=== PATIENT | male | born 1935 | race Caucasian/White ===

== ENCOUNTER 2016-08-09 22:44 | Emergency (ER) | payer MEDICARE, BC ==
--- NOTE | 2016-08-10 00:38 | ER Document Report ---
ED General - General Chief Complaint: Constipation Stated Complaint: BOWEL PROBLEM Time Seen by Provider: 08/10/16 00:15 Notes: Patient is a 80 year old male with a history of chronic constipation who presents with concerns of the same. Patient reports for the past 8-10 months he has had significant problems with constipation and has been following with his primary care doctor for this issue. He has been using glycerin suppositories with minimal relief of his symptoms. At arrival he denies any acute symptoms but states that he is going on a cruise in less than 24 hours and wanted to get "cleaned out" before going on his cruise as he is worried about complications during that vacation. He specifically denies any abdominal pain, nausea, vomiting, difficulty tolerating p.o. intake. Continues to pass flatus and have small bowel movements which he describes as like rocks. Nothing is new or different about his symptoms tonight. He has not noted that anything to improve or worsen his symptoms. TRAVEL OUTSIDE OF THE [place] IN LAST 30 DAYS: No - Related Data Allergies/Adverse Reactions: Sulfa (Sulfonamide Antibiotics) Allergy (Verified 07/24/13 14:42) Past Medical History - General Information source: Patient - Social History Smoking Status: Never Smoker Frequency of alcohol use: None Drug Abuse: None Lives with: Spouse/Significant other Family History: Reviewed & Not Pertinent Patient has suicidal ideation: No Patient has homicidal ideation: No - Past Medical History Cardiac Medical History: Reports: Hx Hypercholesterolemia Denies: Hx Heart Attack, Hx Hypertension Pulmonary Medical History: Denies: Hx Asthma Neurological Medical History: Denies: Hx Cerebrovascular Accident, Hx Seizures Renal/ Medical History: Reports: Hx Benign Prostatic Hyperplasia, Hx Kidney Stones. Denies: Hx Peritoneal Dialysis GI Medical History: Denies: Hx Hepatitis, Hx Hiatal Hernia, Hx Ulcer Infectious Medical History: Denies: Hx Hepatitis Past Surgical History: Reports: Hx Abdominal Surgery - hernia repair, Hx Appendectomy, Hx Herniorrhaphy, Hx Urinary Tract Surgery - TURP, removal right ureteral stone. Denies: Hx Open Heart Surgery, Hx Pacemaker Review of Systems - Review of Systems Notes: Constitutional: Negative for fever. HENT: Negative for sore throat. Eyes: Negative for visual changes. Cardiovascular: Negative for chest pain. Respiratory: Negative for shortness of breath. Gastrointestinal: Negative for abdominal pain, vomiting or diarrhea. Genitourinary: Negative for dysuria. Musculoskeletal: Negative for back pain. Skin: Negative for rash. Neurological: Negative for headaches, weakness or numbness. 10 point ROS negative except as marked above and in HPI. Physical Exam - Vital signs Vitals: Temp Pulse Resp BP Pulse Ox 97.8 F 69 18 139/65 H 96 08/09/16 22:55 08/09/16 22:55 08/09/16 22:55 08/09/16 22:55 08/09/16 22:55 Interpretation: Normal Notes: PHYSICAL EXAMINATION: GENERAL: Well-appearing, well-nourished and in no acute distress. HEAD: Atraumatic, normocephalic. EYES: Pupils equal round and reactive to light, extraocular movements intact, sclera anicteric, conjunctiva are normal. ENT: nares patent, oropharynx clear without exudates. Moist mucous membranes. NECK: Normal range of motion, supple without lymphadenopathy LUNGS: Breath sounds clear to auscultation bilaterally and equal. No wheezes rales or rhonchi. HEART: Regular rate and rhythm without murmurs ABDOMEN: Soft, nontender, normoactive bowel sounds. No guarding, no rebound. No masses appreciated. EXTREMITIES: Normal range of motion, no pitting or edema. No cyanosis. NEUROLOGICAL: No focal neurological deficits. Moves all extremities spontaneously and on command. PSYCH: Normal mood, normal affect. SKIN: Warm, Dry, normal turgor, no rashes or lesions noted. Course - Re-evaluation Re-evalutation: 08/10/16 00:37 Patient is a 80-year-old male who presents concerns of constipation and have been ongoing for 6 months. He denies any is new or different tonight. He denies any abdominal pain, vomiting, and continues to pass flatus and have small , pimple-like bowel movements. He denies any history of bowel obstruction or abdominal surgeries. He has no focal abdominal tenderness on examination. He is otherwise extremely well in appearance, vitals within normal limits. He states the reason he came denies because he is going on a cruise in 24 hours and wanted to get something that would help clear his bowels out before the cruise. He denies any other acute change in his symptoms and has been following with his primary care doctor for these concerns. I do not suspect an acute bowel obstruction, bowel perforation, mesenteric ischemia, biliary pathology, acute appendicitis, or testicular pathology based on patient's exam, reports he is only here to get his bowels cleared out due to going on a cruise, and physical examination which does not demonstrate any focal tenderness on examination. Will recommend MiraLAX therapy. At this time will discharge with return precautions and follow-up recommendations. Verbal discharge instructions given a the bedside and opportunity for questions given. Medication warnings reviewed. Patient is in agreement with this plan and has verbalized understanding of return precautions and the need for primary care follow-up in the next 24-72 hours. - Vital Signs Vital signs: Temp Pulse Resp BP Pulse Ox 97.7 F 64 14 124/67 98 08/10/16 00:45 08/10/16 00:45 08/10/16 00:45 08/10/16 00:45 08/10/16 00:45 Discharge - Discharge Clinical Impression: Constipation Qualifiers: Constipation type: unspecified constipation type Qualified Code(s): K59.00 - Constipation, unspecified Condition: Good Disposition: HOME, SELF-CARE Additional Instructions: For your constipation: You should take 8 caps of MiraLAX and placed in 1 liter of Gatorade. Drink one half of the solution and wait 4 hours. If you do not have a bowel movement take the remaining half of the solution. You can repeat if this is not successful. After you have completed your initial clearing, take 2-3 caps daily of MiraLAX to keep yourself regular. Return to the emergency department immediately if you develop abdominal pain, vomiting, difficulty eating or drinking, or have any other symptoms that are worrisome to you. Referrals: ALMA RAMACHANDRAN MD [Primary Care Provider] - Follow up as needed
[2016-08-10 00:51] VITALS: BP 124/67
== END 2016-08-10 00:51 | disposition home or self-care (01) ==
LOC: ER 22:44
DX: K59.00 Constipation, unspecified (principal); Z88.2 Allergy status to sulfonamides
CPT/HCPCS: 99283

== ENCOUNTER → 2017-02-19 | Outpatient (CLI) | payer MEDICARE, BC ==
[2017-02-19 09:47] LABS: ABSOLUTE BASOPHILS # (AUTO) 0.1 10^3/uL (0.0-0.2); ABSOLUTE EOSINOPHILS # (AUTO) 0.1 10^3/uL (0.0-0.6); ABSOLUTE LYMPHOCYTES (AUTO) 1.3 10^3/uL (0.5-4.7); ABSOLUTE MONOCYTES (AUTO) 0.4 10^3/uL (0.1-1.4); ABSOLUTE NEUT (AUTO) 2.6 10^3/uL (1.7-8.2); BASOPHILS % (AUTO) 1.2 % (0-2); EOSINOPHILS % (AUTO) 3.2 % (0-6); HEMATOCRIT 39.8 % (37.9-51.0); HEMOGLOBIN 13.8 g/dL (13.5-17.0); HGB HCT DIFFERENCE 1.6; LYMPHOCYTES % (AUTO) 29.2 % (13-45); MEAN CORPUSCULAR HEMOGLOBIN 32.5 pg (27.0-33.4); MEAN CORPUSCULAR HGB CONC 34.6 g/dL (32.0-36.0); MEAN CORPUSCULAR VOLUME 94 fl (80-97); MONOCYTES % (AUTO) 8.4 % (3-13); RED BLOOD COUNT 4.24 10^6/uL (4.35-5.55); WHITE BLOOD COUNT 4.5 10^3/uL (4.0-10.5)
[2017-02-19 10:15] LABS: ALANINE AMINOTRANSFERASE 32 U/L (21-72); ALBUMIN 4.1 g/dL (3.5-5.0); ALKALINE PHOSPHATASE 55 U/L (38-126); ANION GAP 11 (5-19); ASPARTATE AMINO TRANSFERASE 20 U/L (17-59); BILIRUBIN,DIRECT 0.2 mg/dL (0.0-0.4); BILIRUBIN,TOTAL 0.8 mg/dL (0.2-1.3); BLOOD UREA NITROGEN 17 mg/dL (7-20); CALCIUM 9.5 mg/dL (8.4-10.2); CARBON DIOXIDE 31 mmol/L (22-30); CHLORIDE 103 mmol/L (98-107); GLUCOSE 89 mg/dL (75-110); POTASSIUM 3.9 mmol/L (3.6-5.0); SODIUM 144.9 mmol/L (137-145); TOTAL PROTEIN 6.4 g/dL (6.3-8.2)
[2017-02-19 10:48] LABS: THYROID STIMULATING HORMONE 1.64 uIU/mL (0.47-4.68)
== END ==
LOC: OD 09:02
PROVIDERS: ATTEND Internal Medicine
DX: E03.9 Hypothyroidism, unspecified (principal); I10 Essential (primary) hypertension
CPT/HCPCS: 36415; 80053; 84439; 84443; 85025

== ENCOUNTER → 2017-11-28 | Outpatient (CLI) | payer MEDICARE, BC ==
[2017-11-28 10:29] LABS: ABSOLUTE EOSINOPHILS # (AUTO) 0.1 10^3/uL (0.0-0.6); ABSOLUTE LYMPHOCYTES (AUTO) 0.8 10^3/uL (0.5-4.7); ABSOLUTE MONOCYTES (AUTO) 0.3 10^3/uL (0.1-1.4); ABSOLUTE NEUT (AUTO) 3.4 10^3/uL (1.7-8.2); BASOPHILS % (AUTO) 0.9 % (0-2); EOSINOPHILS % (AUTO) 1.7 % (0-6); HEMATOCRIT 39.5 % (37.9-51.0); HEMOGLOBIN 13.7 g/dL (13.5-17.0); LYMPHOCYTES % (AUTO) 17.9 % (13-45); MEAN CORPUSCULAR HEMOGLOBIN 32.8 pg (27.0-33.4); MEAN CORPUSCULAR HGB CONC 34.7 g/dL (32.0-36.0); MEAN CORPUSCULAR VOLUME 94 fl (80-97); MONOCYTES % (AUTO) 6.1 % (3-13); RED BLOOD COUNT 4.19 10^6/uL (4.35-5.55); RED CELL DISTRIBUTION WIDTH 13.2 % (11.5-14.0); SEGMENTED NEUTROPHILS % (AUTO) 73.4 % (42-78); TOTAL CELLS COUNTED % (AUTO) 100 %; WHITE BLOOD COUNT 4.6 10^3/uL (4.0-10.5)
[2017-11-28 10:51] LABS: ALANINE AMINOTRANSFERASE 30 U/L (21-72); ALKALINE PHOSPHATASE 48 U/L (38-126); ANION GAP 9 (5-19); ASPARTATE AMINO TRANSFERASE 21 U/L (17-59); BILIRUBIN,DIRECT 0.3 mg/dL (0.0-0.4); BILIRUBIN,TOTAL 1.3 mg/dL (0.2-1.3); BLOOD UREA NITROGEN 10 mg/dL (7-20); CALCIUM 9.8 mg/dL (8.4-10.2); CARBON DIOXIDE 31 mmol/L (22-30); CHLORIDE 101 mmol/L (98-107); CHOLESTEROL 128.03 mg/dL (0-200); GLUCOSE 97 mg/dL (75-110); PLATELET COUNT 79 10^3/uL (150-450); POTASSIUM 4.3 mmol/L (3.6-5.0); SODIUM 140.8 mmol/L (137-145); TOTAL PROTEIN 6.6 g/dL (6.3-8.2); TRIGLYCERIDES 73 mg/dL (<150)
[2017-11-28 11:05] LABS: DIRECT LDL 73 mg/dL (<100)
== END ==
LOC: OD 09:22
PROVIDERS: ATTEND Internal Medicine
DX: E78.00 Pure hypercholesterolemia, unspecified (principal); G31.84 Mild cognitive impairment of uncertain or unknown etiology; D72.0 Genetic anomalies of leukocytes; R35.0 Frequency of micturition; Z12.5 Encounter for screening for malignant neoplasm of prostate; N42.89 Other specified disorders of prostate
CPT/HCPCS: 36415; 80053; 80061; 84153; 85025

== ENCOUNTER → 2018-04-02 | Outpatient (CLI) | payer MEDICARE, BC ==
--- NOTE | 2018-04-02 15:54 | RADIOLOGY REPORT (SQ) ---
EXAM DESCRIPTION: BARIUM SWALLOW ESOPHAGUS COMPLETED DATE/TIME: 04/02/2018 10:01 am REASON FOR STUDY: R13.10 DYSPHAGIA, UNSPECIFIED R13.10 DYSPHAGIA, UNSPECIFIED COMPARISON: None. TECHNIQUE: Under fluoroscopic guidance, patient ingested effervescent granules followed by thick and thin barium. Fluoroscopic spot images and routine radiographic images acquired and stored on PACS. 12 MM BARIUM TABLET GIVEN: The patient swallowed a 12 mm barium tablet which passed easily through th e esophagus into the stomach without delay. LIMITATIONS: None. FLUOROSCOPY TIME: FLUORO TIME: 1.5 minutes 5 images saved to PACS. FINDINGS: NEUROMUSCULAR COORDINATION OF SWALLOW: Normal. No aspiration. ESOPHAGEAL MOTILITY: Normal peristalsis. No esophageal spasm. ESOPHAGEAL MUCOSA: Normal mucosa without masses or ulceration. GASTRO-ESOPHAGEAL JUNCTION: No hiatal hernia or reflux. NON-GI TRACT STRUCTURES: No significant finding. OTHER: Incidental finding of a duodenal diverticulum. IMPRESSION: NORMAL DOUBLE CONTRAST BARIUM SWALLOW. RECOMMENDATION: None COMMENT: None Quality ID 145: Final reports for procedures using fluoroscopy that document radiation exposure gil silvio, or exposure time and number of fluorographic images (if radiation exposure indices are not avail able) TECHNICAL DOCUMENTATION: JOB ID: [id number] [employer]- All Rights Reserved Reading location - IP/workstation name: [email or web address] [id number]
== END ==
LOC: RAD 08:56
PROVIDERS: ATTEND Internal Medicine Gastroenterology
DX: R13.10 Dysphagia, unspecified (principal)
CPT/HCPCS: 74220

== ENCOUNTER → 2018-04-25 | Outpatient (CLI) | payer MEDICARE, BC ==
--- NOTE | 2018-04-25 08:52 | ST Modified Barium Swallow ---
Recommendation - Recommendations Recommendations: No diet change recommendations. Recommend reduced rate for drinking liquids, and hard swallows for solids. Should problem worsen, may benefit from neurological assessment. Medical Diagnoses - Medical Diagnoses Medical Diagnosis Description & ICD-10 Code(s): dysphagia R13.10 Other Medical Diagnoses/Co-Morbidities: per patient report: reflux ST Modified Barium Swallow - General Date: 04/25/18 Referring Physician: Dr. Augustine Date of Onset: 04/05/14 - approximate onset date Reason for Referral: difficulty swallowing - History History obtained from: Patient -: Medical - per patient report: patient reports having difficulty swallowing for approximately 4 years. States that 4 years ago he had to have a tube put down his throat for a procedure, unable to state what procedure he had. Specifically reports difficulty swallowing pills, states that they get stuck, indicating his right side, and that he has to "cough them up" sometimes. No pneumonia or bronchitis reported. Patient reported no prior neck surgeries, however, imaging indicated changes in cervical spine. Medications: per patient report: reflux medication, vitamin c, prostate medic ation (unable to name all medications) Allergies: none reported by patient, medical record indicates sulfa allergy - Functional Status Prior Functional Status: INDEPENDENT: feeding Current Functional Limitations: feeding - difficulty with pills - Subjective Patient/caregiver goal(s): safe swallow Cognitive-Linguistic Function: Moderately Impaired - some difficulty answering questions and following directions noted Speech Intelligibility: Reduced intelligibility - imprecise speech noted Current Nutritional Means: PO Current PO diet: Regular Current symptoms: c/o Globus sensation Pain: Patient reports, 0/5 - Objective Assessment: Upright, Left Lateral - Food Trials Used Food trials used: Thin liquids, Pureed, Regular, Other - barium tablet The patient: Was Able to Self Feed - Oral-Motor Skills Dentition: Partial Velo-pharyngeal function: Unremarkable Laryngeal Function: clear voicing - Assessment Oral prep: Normal Labial closure: Adequate Leakage: None Mastication: Adequate Lingual Movement: Normal Oral stage: Normal for this Procedure - Pharyngeal Stage Initiation of Pharyngeal Stage Reflex: Delayed Reflex Delay Time (Seconds): 4 Decreased laryngeal elevation: Yes - mild, inconsistent Reduced Velopharyngeal Closure: no Reduced pressure generation: No reduced tongue-based retraction: No Pre-swallow pooling in valleculae: Moderate - with all solid trials Pre-Swallow pooling in pyriforms: Moderate - with tamara cracker trials Reduced Thyro-Hyoid approximation: No Reduced epiglottic excursion: No Reduced pharyngeal peristalsis/contraction: No Post-swallow residulas vallecular: Mild Post-Swallow residuals in pyriforms: Mild - Fall Risk Assessment Medications/Conditions that increase fall risks include: Antidepressants, sedatives, anti-arrhythmic, diuretic, benzodiazipenes, neuroleptics. BP regulation problems, cardiac problems, balance or gait deficits, neurological problems. Is patient considered at risk for falls: no Fall Risk Actions Taken: No action needed - Behavioral Observations During evaluation process patient: was pleasant, was cooperative - Treatment / Educational Needs: Treatment/Education Needs: Treatment consisted of patient education on the role of the Speech Pathologist. Patient's plan of care and golas were communicated as well as scheduling and attendance policies. Recommendations for initial home program were shared. Patient demonstrated understanding and verbalized agreement. - Impression/Summary Laryngeal Penetration: Yes, during swallow Consistency: Thin Tracheal Aspiration: no Patient presents with: Pharyngeal stage dysph., Mild-Moderate Risk of Aspiration: Mild Risk of nutritional compromise: None Evaluation and Findings: Patient demonstrated delay in swallow reflex with all textures. Penetration seen with multiple thin liquid trials, no aspiration seen. No significant residue seen following the swallow, mild residue was cleared with dry swallow. Patient reports difficulty swallowing pills, however, barium tablet was swallowed easily this day. - Recommendations Solid diet recommendations: Regular Liquid Diet Modification: Thin Strict aspiration precautions: Yes Pt/Family education and followup with MD: Yes Dysphagia therapy with DIGITAL PRINT OPERATOR: dysphagia therapy - Due to some difficulty following directions during the assessment, patient may also have difficulty particpating in skilled dysphagia intervention. Recommended techniques: Fully Upright During Meal, Small Bites and Sips - with hard swallows Information, Precautions and Recommendations: Patient (Written), Patient (Verbal) - Time Total Time: 30 - Plan of Care Strategies to optimize patient understanding include:: ongoing assessment of educational needs, implementation of educational strategies, and re-education. - - -: Thank you for the opportunity to work with this patient and his/her family. Should you have any questions about this patient's plan or progress, I can be reached at [phone].
--- NOTE | 2018-04-25 12:46 | RADIOLOGY REPORT (SQ) ---
EXAM DESCRIPTION: COOKIE SWALLOW COMPLETED DATE/TIME: 04/25/2018 8:46 am REASON FOR STUDY: DYSPHAGIA R13.10 DYSPHAGIA, UNSPECIFIEDBOLUS SENSATION COMPARISON: Barium swallow 04/02/2017. TECHNIQUE: Videofluoroscopic swallowing examination was performed in conjunction with speech patholo gy. Videofluoroscopic imaging was obtained and reviewed and these are the findings: RADIATION DOSE: 2 minutes 20 seconds of fluoroscopy was used. 2 images saved to PACS. LIMITATIONS: None FINDINGS: The patient was brought into the fluoro room and placed upright on a modified barium swall ow chair. The patient was then given multiple consistencies mixed with barium to swallow under live fluoroscopic video guidance. According to the Speech Pathologist there was laryngeal penetration wit h thin liquids. No aspiration seen. Mild cricopharyngeal hypertrophy. Multiple level cervical oste ophytes causing impression upon the proximal esophagus at the level of the epiglottis. IMPRESSION: LARYNGEAL PENETRATION WITH THIN LIQUIDS WITHOUT ASPIRATION.PLEASE SEE SPEECH PATHOLOGIS T REPORT FOR OTHER FINDINGS AND RECOMMENDATIONS. COMMENT: Quality ID 145: Final reports for procedures using fluoroscopy that document radiation exp osure indices, or exposure time and number of fluorographic images (if radiation exposure indices are not available) TECHNICAL DOCUMENTATION: JOB ID: [id number] [employer]- All Rights Reserved Reading location - IP/workstation name: [email or web address] [id number]
== END ==
LOC: RAD 08:04
PROVIDERS: ATTEND Internal Medicine Gastroenterology
DX: R13.13 Dysphagia, pharyngeal phase (principal)
CPT/HCPCS: 74230

== ENCOUNTER → 2018-12-28 | Outpatient (CLI) | payer MEDICARE, BC ==
[2018-12-28 09:09] LABS: ABSOLUTE EOSINOPHILS # (AUTO) 0.1 10^3/uL (0.0-0.6); ABSOLUTE MONOCYTES (AUTO) 0.3 10^3/uL (0.1-1.4); ABSOLUTE NEUT (AUTO) 2.8 10^3/uL (1.7-8.2); BASOPHILS % (AUTO) 0.7 % (0-2); EOSINOPHILS % (AUTO) 3.5 % (0-6); HEMATOCRIT 38.3 % (37.9-51.0); HEMOGLOBIN 12.9 g/dL (13.5-17.0); LYMPHOCYTES % (AUTO) 22.4 % (13-45); MEAN CORPUSCULAR HEMOGLOBIN 32.3 pg (27.0-33.4); MEAN CORPUSCULAR HGB CONC 33.7 g/dL (32.0-36.0); MEAN CORPUSCULAR VOLUME 96 fl (80-97); MONOCYTES % (AUTO) 7.5 % (3-13); RED CELL DISTRIBUTION WIDTH 13.3 % (11.5-14.0); SEGMENTED NEUTROPHILS % (AUTO) 65.9 % (42-78); TOTAL CELLS COUNTED % (AUTO) 100 %; WHITE BLOOD COUNT 4.3 10^3/uL (4.0-10.5)
[2018-12-28 09:30] LABS: ALBUMIN 3.9 g/dL (3.5-5.0); ALKALINE PHOSPHATASE 47 U/L (38-126); ANION GAP 7 (5-19); ASPARTATE AMINO TRANSFERASE 22 U/L (17-59); BILIRUBIN,DIRECT 0.1 mg/dL (0.0-0.4); BILIRUBIN,TOTAL 0.9 mg/dL (0.2-1.3); BLOOD UREA NITROGEN 17 mg/dL (7-20); CALCIUM 9.4 mg/dL (8.4-10.2); CARBON DIOXIDE 32 mmol/L (22-30); CHLORIDE 104 mmol/L (98-107); CHOLESTEROL 123.33 mg/dL (0-200); GLUCOSE 86 mg/dL (75-110); POTASSIUM 4.1 mmol/L (3.6-5.0); TOTAL PROTEIN 6.4 g/dL (6.3-8.2); TRIGLYCERIDES 81 mg/dL (<150)
[2018-12-28 09:34] LABS: PLATELET COUNT 67 10^3/uL (150-450)
[2018-12-28 09:41] LABS: DIRECT LDL 87 mg/dL (<100)
[2018-12-28 09:45] LABS: FREE T4 (FREE THYROXINE) 1.41 ng/dL (0.78-2.19)
[2018-12-28 09:59] LABS: THYROID STIMULATING HORMONE 1.23 uIU/mL (0.47-4.68)
== END ==
LOC: OD 08:22
PROVIDERS: ATTEND Internal Medicine
DX: E03.9 Hypothyroidism, unspecified (principal); I10 Essential (primary) hypertension; E78.00 Pure hypercholesterolemia, unspecified; Z79.899 Other long term (current) drug therapy
CPT/HCPCS: 36415; 80053; 80061; 84439; 84443; 85025

== ENCOUNTER → 2019-01-01 | Outpatient (CLI) | payer MEDICARE, BC ==
[2019-01-01 14:25] LABS: ABSOLUTE LYMPHOCYTES (AUTO) 0.5 10^3/uL (0.5-4.7); ABSOLUTE MONOCYTES (AUTO) 0.1 10^3/uL (0.1-1.4); ABSOLUTE NEUT (AUTO) 7.2 10^3/uL (1.7-8.2); BASOPHILS % (AUTO) 0.1 % (0-2); EOSINOPHILS % (AUTO) 0.1 % (0-6); HEMATOCRIT 37.8 % (37.9-51.0); LYMPHOCYTES % (AUTO) 6.3 % (13-45); MEAN CORPUSCULAR HEMOGLOBIN 32.4 pg (27.0-33.4); MEAN CORPUSCULAR HGB CONC 34.2 g/dL (32.0-36.0); MEAN CORPUSCULAR VOLUME 95 fl (80-97); MONOCYTES % (AUTO) 1.7 % (3-13); RED CELL DISTRIBUTION WIDTH 13.2 % (11.5-14.0); SEGMENTED NEUTROPHILS % (AUTO) 91.8 % (42-78); TOTAL CELLS COUNTED % (AUTO) 100 %; WHITE BLOOD COUNT 7.9 10^3/uL (4.0-10.5)
[2019-01-01 14:50] LABS: PLATELET COUNT 80 10^3/uL (150-450)
== END ==
LOC: OD 13:48
PROVIDERS: ATTEND Internal Medicine
DX: D69.6 Thrombocytopenia, unspecified (principal); D64.9 Anemia, unspecified
CPT/HCPCS: 36415; 85025

== ENCOUNTER 2019-01-23 11:54 | Emergency (ER) | payer MEDICARE, BC ==
--- NOTE | 2019-01-23 12:15 | ER Document Report ---
ED Medical Screen (RME) - General Chief Complaint: Constipation Stated Complaint: CONSTIPATION Time Seen by Provider: 01/23/19 12:13 Primary Care Provider: ALMA RAMACHANDRAN MD [Primary Care Provider] - Follow up as needed TRAVEL OUTSIDE OF THE [place] IN LAST 30 DAYS: No - HPI Notes: 01/23/19 12:14 Patient is an 83-year-old male with a history of constipation who presents complaining of possible fecal impaction and constipation. Last bowel movement was 3 days ago. Patient states that he has tried suppositories and p.o. laxatives with minimal relief. Patient states that he feels like there is something that that is too big and won't come out. No fever. No significant abdominal pain. No chest pain or shortness of breath. I have treated and performed a rapid initial assessment of this patient. A comprehensive ED assessment and evaluation of the patient, analysis of test results and completion of medical decision making process will be conducted by additional ED providers. PHYSICAL EXAMINATION: GENERAL: Well-appearing, well-nourished and in no acute distress. Answers questions appropriately. Abdomen: Soft, nontender. - Related Data Allergies/Adverse Reactions: Sulfa (Sulfonamide Antibiotics) Allergy (Verified 07/24/13 14:42) Past Medical History - Past Medical History Cardiac Medical History: Reports: Hx Hypercholesterolemia Denies: Hx Heart Attack, Hx Hypertension Pulmonary Medical History: Denies: Hx Asthma Neurological Medical History: Denies: Hx Cerebrovascular Accident, Hx Seizures Renal/ Medical History: Reports: Hx Benign Prostatic Hyperplasia, Hx Kidney Stones. Denies: Hx Peritoneal Dialysis GI Medical History: Denies: Hx Hepatitis, Hx Hiatal Hernia, Hx Ulcer Infectious Medical History: Denies: Hx Hepatitis Past Surgical History: Reports: Hx Abdominal Surgery - hernia repair, Hx Appendectomy, Hx Herniorrhaphy, Hx Urinary Tract Surgery - TURP, removal right ureteral stone. Denies: Hx Open Heart Surgery, Hx Pacemaker - Immunizations Hx Diphtheria, Pertussis, Tetanus Vaccination: Yes Physical Exam - Vital signs Vitals: Temp Pulse Resp BP Pulse Ox 97.5 F 79 18 114/58 L 100 01/23/19 12:08 01/23/19 12:08 01/23/19 12:08 01/23/19 12:08 01/23/19 12:08 Course - Vital Signs Vital signs: Temp Pulse Resp BP Pulse Ox 97.5 F 79 18 114/58 L 100 01/23/19 12:08 01/23/19 12:08 01/23/19 12:08 01/23/19 12:08 01/23/19 12:08 Doctor's Discharge - Discharge Referrals: ALMA RAMACHANDRAN MD [Primary Care Provider] - Follow up as needed
[2019-01-23] MEDS ORDERED: LACTULOSE SYRUP 20 GM/30 ML UDCUP PO ONE (12:18)
[2019-01-23] MEDS ORDERED: BISACODYL 5 MG TABEC PO ONE (12:18)
--- NOTE | 2019-01-23 13:00 | RADIOLOGY REPORT (SQ) ---
EXAM DESCRIPTION: KUB/ABDOMEN (SINGLE VIEW) COMPLETED DATE/TIME: 01/23/2019 12:30 pm REASON FOR STUDY: ?impaction COMPARISON: Barium swallow 04/02/2018 CT abdomen pelvis 07/24/2013 NUMBER OF VIEWS: One view. TECHNIQUE: Supine radiographic image of the abdomen acquired. LIMITATIONS: None. FINDINGS: BOWEL GAS PATTERN: Normal bowel gas pattern. No dilated loops. Mild constipation. CALCIFICATIONS: No suspicious calcifications. SOFT TISSUES: No gross mass or suggestion of organomegaly. HARDWARE: None in the abdomen. BONES: No acute fracture. No worrisome bone lesions. OTHER: No other significant finding. IMPRESSION: NO RADIOGRAPHIC EVIDENCE FOR ACUTE ABDOMINAL DISEASE. MILD CONSTIPATION WITH STOOL IN THE RECTOSIGMOID AND ASCENDING COLON TECHNICAL DOCUMENTATION: JOB ID: [id number] [email or web address]- All Rights Reserved Reading location - IP/workstation name: [email or web address]
[2019-01-23 13:15] LABS: AMORPHOUS SEDIMENT,URINE TRACE /HPF; APPEARANCE,URINE SLIGHTLY-CLOUDY; BILIRUBIN,URINE NEGATIVE (NEGATIVE); COLOR,URINE YELLOW; GLUCOSE, URINE NEGATIVE (NEGATIVE); KETONES,URINE NEGATIVE (NEGATIVE); LEUKOCYTE ESTERASE,URINE NEGATIVE (NEGATIVE); NITRITE,URINE NEGATIVE (NEGATIVE); PROTEIN,URINE NEGATIVE (NEGATIVE); URINE SPECIFIC GRAVITY 1.008; UROBILINOGEN,URINE NEGATIVE mg/dL (<2.0)
[2019-01-23] MEDS ORDERED: LIDOCAINE 2% URO-JET 5 ML KIT MM ONE (13:53)
--- NOTE | 2019-01-23 18:03 | RADIOLOGY REPORT (SQ) ---
EXAM DESCRIPTION: U/S NON-OB PELVIS LTD W/O DOP COMPLETED DATE/TIME: 01/23/2019 5:39 pm REASON FOR STUDY: left pelvic pain COMPARISON: None. TECHNIQUE: Dynamic and static grayscale images acquired of the pelvis via transabdominal approach an d recorded on PACS. Additional selected color Doppler and spectral images recorded. LIMITATIONS: None. FINDINGS: Sonographic imaging in the area of pain in the left groin shows what appears to be a mesh from prior hernia repair. Normal bowel peristalsis is present. No mass or fluid collection is seen. IMPRESSION: No herniated bowel is appreciated. TECHNICAL DOCUMENTATION: JOB ID: [id number] [employer] All Rights Reserved Rev-07/20 Reading location - IP/workstation name: [email or web address]
[2019-01-23] MEDS ORDERED: POLYETHYLENE GLYCOL 3350 POWDER 17 GM/1 PACKET PO ONE (18:16)
--- NOTE | 2019-01-23 18:21 | ER Document Report ---
ED GI/ - General Chief Complaint: Constipation Stated Complaint: CONSTIPATION Time Seen by Provider: 01/23/19 12:13 Primary Care Provider: ALMA RAMACHANDRAN MD [Primary Care Provider] - Follow up as needed Notes: Patient is a 83-year-old male presents to the emergency department for constipation. States he has not had a bowel movement in the last 3 days. States they have been taking [id number] milk of magnesia and used a suppository last evening. Patient's denying any vomiting or abdominal pain. Patient's is in the room of the patient doing most of the talking. 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 Does have intermittent confusion although is answering questions appropriately at this time. voices this is normal for patient. Patient's denying any abdominal pain, states he did have a hernia repair in the past. Patient voices a "bulge" in the left pelvic region. Again is denying any pain. Patient's denying any dysuria. TRAVEL OUTSIDE OF THE [place] IN LAST 30 DAYS: No - Related Data Allergies/Adverse Reactions: Sulfa (Sulfonamide Antibiotics) Allergy (Verified 07/24/13 14:42) Past Medical History - General Information source: Patient, Relative - Social History Smoking Status: Unknown if Ever Smoked Family History: Reviewed & Not Pertinent Patient has suicidal ideation: No Patient has homicidal ideation: No - Past Medical History Cardiac Medical History: Reports: Hx Hypercholesterolemia Denies: Hx Heart Attack, Hx Hypertension Pulmonary Medical History: Denies: Hx Asthma Neurological Medical History: Denies: Hx Cerebrovascular Accident, Hx Seizures Renal/ Medical History: Reports: Hx Benign Prostatic Hyperplasia, Hx Kidney Stones. Denies: Hx Peritoneal Dialysis GI Medical History: Denies: Hx Hepatitis, Hx Hiatal Hernia, Hx Ulcer Infectious Medical History: Denies: Hx Hepatitis Past Surgical History: Reports: Hx Abdominal Surgery - hernia repair, Hx Appendectomy, Hx Herniorrhaphy, Hx Urinary Tract Surgery - TURP, removal right ureteral stone. Denies: Hx Open Heart Surgery, Hx Pacemaker - Immunizations Hx Diphtheria, Pertussis, Tetanus Vaccination: Yes Review of Systems - Review of Systems Constitutional: denies: Fever EENT: No symptoms reported Cardiovascular: No symptoms reported Respiratory: No symptoms reported Gastrointestinal: See HPI Genitourinary: See HPI Male Genitourinary: No symptoms reported Musculoskeletal: No symptoms reported Skin: No symptoms reported Hematologic/Lymphatic: No symptoms reported Neurological/Psychological: No symptoms reported Physical Exam - Vital signs Vitals: Temp Pulse Resp BP Pulse Ox 97.5 F 79 18 114/58 L 100 01/23/19 12:08 01/23/19 12:08 01/23/19 12:08 01/23/19 12:08 01/23/19 12:08 - Notes Notes: GENERAL: Alert, interacts well. No acute distress. HEAD: Normocephalic, atraumatic. EYES: Pupils equal, round, and reactive to light. Extraocular movements intact. ENT: Oral mucosa moist, tongue midline. NECK: Full range of motion. Supple. Trachea midline. LUNGS: Clear to auscultation bilaterally, no wheezes, rales, or rhonchi. No respiratory distress. HEART: Regular rate and rhythm. No murmur ABDOMEN: Soft, non-tender. Slight bulge noted left pelvic region, no pain or testicular discomfort, erythema noted bilaterally. Non-distended. Bowel sounds present in all 4 quadrants. EXTREMITIES: Moves all 4 extremities spontaneously. No edema, normal radial and dorsalis pedis pulses bilaterally. No cyanosis. BACK: no cervical, thoracic, lumbar midline tenderness. No saddle anesthesia, normal distal neurovascular exam. NEUROLOGICAL: Alert and oriented x3. Normal speech. PSYCH: Normal affect, normal mood. SKIN: Warm, dry, normal turgor. No rashes or lesions noted. Course - Re-evaluation Re-evalutation: Laboratory 01/23/19 12:50 Urine Color YELLOW Urine Appearance SLIGHTLY-CLOUDY Urine pH 7.0 Ur Specific [place] 1.008 Urine Protein NEGATIVE Urine Glucose (UA) NEGATIVE Urine Ketones NEGATIVE Urine Blood NEGATIVE Urine Nitrite NEGATIVE Urine Bilirubin NEGATIVE Urine Urobilinogen NEGATIVE Ur Leukocyte Esterase NEGATIVE Urine WBC (Auto) 2 Urine RBC (Auto) 1 Amorphous Sediment Auto TRACE Urine Mucus (Auto) RARE Urine Ascorbic Acid 20 H KUB X-Ray 01/23/19 12:13 IMPRESSION: NO RADIOGRAPHIC EVIDENCE FOR ACUTE ABDOMINAL DISEASE. MILD CONSTIPATION WITH STOOL IN THE RECTOSIGMOID AND ASCENDING COLON Pelvis Ultrasound 01/23/19 14:44 IMPRESSION: No herniated bowel is appreciated. Digital exam done at bedside, no obvious stool in rectal vault, did feel stool at the distal end of my finger. Attempted to break it up with a Urojet and my finger. Only scant amount of stool able to be expressed, patient tolerated well. Discussed with patient and at bedside use of MiraLAX and Colace. Discussed close follow-up with primary care provider and eventual referral to gastroenterology should patient continue to be constipated. Patient continues to deny any abdominal pain, nausea. Patient voices "I can feel like they are, it just needs to come out." In reference to his rectum. - Vital Signs Vital signs: Temp Pulse Resp BP Pulse Ox 97.5 F 79 18 114/58 L 100 01/23/19 12:08 01/23/19 12:08 01/23/19 12:08 01/23/19 12:08 01/23/19 12:08 - Laboratory Laboratory results interpreted by me: 01/23/19 12:50 Urine Ascorbic Acid 20 H Discharge - Discharge Clinical Impression: Constipation Qualifiers: Constipation type: other constipation type Qualified Code(s): K59.09 - Other constipation Condition: Stable Disposition: HOME, SELF-CARE Instructions: Constipation ([facility]) Additional Instructions: As we discussed you have been seen and treated in the emergency department for constipation. Please use MiraLAX daily as well as taking stool softeners. Both are prescribed. Please make sure you follow-up with your primary care provider in the next 12 to 24 hours. Return to the emergency department for any abdominal pain or other concerns. Prescriptions: Docusate Sodium [Colace 100 mg Capsule] 100 mg PO DAILY #30 capsule Polyethylene Glycol 3350 [Miralax] 1 cap PO DAILY #527 powder Referrals: ALMA RAMACHANDRAN MD [Primary Care Provider] - Follow up as needed
[2019-01-23 18:33] VITALS: BP 143/62
== END 2019-01-23 18:32 | disposition home or self-care (01) ==
LOC: ER 11:54
DX: K59.00 Constipation, unspecified (principal); R41.0 Disorientation, unspecified; Z88.2 Allergy status to sulfonamides
CPT/HCPCS: 81001; 74018; 76857; A9270 ×4; 99284; J3490

== ENCOUNTER → 2019-09-12 | Outpatient (CLI) | payer MEDICARE, BC ==
[2019-09-12 11:08] LABS: ALBUMIN 4.1 g/dL (3.5-5.0); ALKALINE PHOSPHATASE 63 U/L (38-126); ANION GAP 5 (5-19); ASPARTATE AMINO TRANSFERASE 29 U/L (17-59); BLOOD UREA NITROGEN 18 mg/dL (7-20); CALCIUM 9.7 mg/dL (8.4-10.2); CARBON DIOXIDE 32 mmol/L (22-30); CHLORIDE 101 mmol/L (98-107); CHOLESTEROL 119.38 mg/dL (0-200); GLUCOSE 87 mg/dL (75-110); POTASSIUM 3.9 mmol/L (3.6-5.0); TOTAL PROTEIN 6.7 g/dL (6.3-8.2); TRIGLYCERIDES 68 mg/dL (<150)
[2019-09-12 11:22] LABS: DIRECT LDL 71 mg/dL (<100)
[2019-09-12 12:18] LABS: HEMATOCRIT 37.8 % (37.9-51.0); MEAN CORPUSCULAR VOLUME 94 fl (80-97); RED BLOOD COUNT 4.03 10^6/uL (4.35-5.55)
[2019-09-12 12:19] LABS: ABSOLUTE BASOPHILS # (AUTO) 0.1 10^3/uL (0.0-0.2); ABSOLUTE EOSINOPHILS # (AUTO) 0.2 10^3/uL (0.0-0.6); ABSOLUTE LYMPHOCYTES (AUTO) 0.9 10^3/uL (0.5-4.7); ABSOLUTE MONOCYTES (AUTO) 0.4 10^3/uL (0.1-1.4); ABSOLUTE NEUT (AUTO) 3.5 10^3/uL (1.7-8.2); BASOPHILS % (AUTO) 1.1 % (0-2); EOSINOPHILS % (AUTO) 3.5 % (0-6); LYMPHOCYTES % (AUTO) 17.8 % (13-45); MEAN CORPUSCULAR HEMOGLOBIN 32.2 pg (27.0-33.4); MEAN CORPUSCULAR HGB CONC 34.3 g/dL (32.0-36.0); MONOCYTES % (AUTO) 7.4 % (3-13); RED CELL DISTRIBUTION WIDTH 13.8 % (11.5-14.0); SEGMENTED NEUTROPHILS % (AUTO) 70.2 % (42-78); TOTAL CELLS COUNTED % (AUTO) 100 %
[2019-09-12 12:20] LABS: PLATELET COUNT 51 10^3/uL (150-450)
== END ==
LOC: OD 09:53
PROVIDERS: ATTEND Internal Medicine
DX: G30.9 Alzheimer's disease, unspecified (principal); Z12.5 Encounter for screening for malignant neoplasm of prostate; R35.0 Frequency of micturition; R63.4 Abnormal weight loss; Z79.899 Other long term (current) drug therapy
CPT/HCPCS: 36415; 80053; 80061; 84153; 85025

== ENCOUNTER → 2019-09-29 | Outpatient (CLI) | payer MEDICARE, BC ==
--- NOTE | 2019-09-29 14:59 | RADIOLOGY REPORT (SQ) ---
EXAM DESCRIPTION: BARIUM SWALLOW ESOPHAGUS IMAGES COMPLETED DATE/TIME: 09/29/2019 9:34 am REASON FOR STUDY: DYSGEUSIA (R43.2), HOARSNESS OR CHANGING VOICE (R49.9), LPRD (K21.9) K21.9 GASTRO -ESOPHAGEAL REFLUX DISEASE WITHOUT ESOPHAGITIS COMPARISON: BARIUM SWALLOW 04/02/2018 TECHNIQUE: Under fluoroscopic guidance, patient ingested effervescent granules followed by thick and thin barium. Fluoroscopic spot images and routine radiographic images acquired and stored on PACS. 12 MM BARIUM TABLET GIVEN: Patient unable to swallow barium tablet LIMITATIONS: None. FLUOROSCOPY TIME: FLUORO TIME: 3.8 minutes 7 images saved to PACS. FINDINGS: NEUROMUSCULAR COORDINATION OF SWALLOW: Aspiration was seen during the study. ESOPHAGEAL MOTILITY: Normal peristalsis. No esophageal spasm. ESOPHAGEAL MUCOSA: Normal mucosa without masses or ulceration. GASTRO-ESOPHAGEAL JUNCTION: No hiatal hernia or reflux. NON-GI TRACT STRUCTURES: No significant finding. OTHER: No other significant finding. IMPRESSION: ASPIRATION WITH THICK BARIUM. OTHERWISE UNREMARKABLE STUDY. RECOMMENDATION: Modified cookie swallow for evaluation of aspiration. COMMENT: None Quality ID 145: Final reports for procedures using fluoroscopy that document radiation exposure gil silvio, or exposure time and number of fluorographic images (if radiation exposure indices are not avail able) TECHNICAL DOCUMENTATION: JOB ID: [id number] 2010 [employer]- All Rights Reserved Reading location - IP/workstation name: [email or web address] [id number]
== END ==
LOC: RAD 08:35
PROVIDERS: ATTEND Otolaryngology
DX: K21.9 Gastro-esophageal reflux disease without esophagitis (principal); R49.9 Unspecified voice and resonance disorder
CPT/HCPCS: 74220

== ENCOUNTER → 2019-11-06 | Outpatient (CLI) | payer MEDICARE, BC ==
--- NOTE | 2019-11-06 10:00 | ST Modified Barium Swallow ---
Recommendation - Recommendations Recommendations: Recommend patient continue with current speech therapy to address dysphagia. Recommend mechanical soft diet with ground meats, thin liquids. Patient is at risk of aspiration on this diet. Patient will likely need to be re-assessed at intervals due to nature of swallowing disorder. 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 ST Modified Barium Swallow - General Date: 11/06/19 Referring Physician: Dr. De Risks/Precautions: Falls Date of Onset: 09/03/19 - approximate onset Reason for Referral: globus, throat clearing - History -: Medical - Patient attended evaluation with , who was primary historian. She reports that the patient has had difficulty swallowing for approximately 2 months, and that primary complaint is frequent globus sensation. This can be with or without food. He has been receiving home health speech therapy for dysphagia as well as cognitive communication deficits. There are reportedly no clinical signs of aspiration during meals. No recent pneumonias reported. Patient did have recent barium swallow, during which aspiration of thick barium was reported. Medications: per caregiver report: narmazric, acetamin, esomeprazole, czetimibe, famotidine, finasteride, flomax, aspirin, miralax, zofran, B12, Vit. C, bisacodyl, glycerin Allergies: per clinical care leader report: sulfa - Functional Status Prior Functional Status: INDEPENDENT: feeding - no deficits Current Functional Limitations: feeding - soft diet - Subjective Patient/caregiver goal(s): improve intake, safe swallow Cognitive-Linguistic Function: Moderately Impaired Speech Intelligibility: Moderately dysarthric, Reduced intelligibility Current Nutritional Means: PO Current PO diet: Soft - with thin liquids Current symptoms: Weight loss, c/o Globus sensation Pain: Patient reports, 3/5 - headache - Objective Assessment: Upright, Left Lateral - Food Trials Used Food trials used: Thin liquids, [place] thick liquids, Pureed, Regular The patient: Was Able to Self Feed - Oral-Motor Skills Dentition: Partial Velo-pharyngeal function: Unremarkable Laryngeal Function: weak voicing - Assessment Oral prep: Normal Labial closure: Adequate Leakage: None Mastication: Lengthy Lingual Movement: Normal Oral stage: Piecemeal Deglutition - Pharyngeal Stage Initiation of Pharyngeal Stage Reflex: Delayed - significant swallow delay with puree and regular solids, moderate delay with liquids Decreased laryngeal elevation: Yes Reduced Velopharyngeal Closure: no Reduced pressure generation: Yes Pre-swallow pooling in valleculae: Significant Pre-Swallow pooling in pyriforms: Significant Reduced Thyro-Hyoid approximation: Yes Reduced pharyngeal peristalsis/contraction: Yes Multiple Swallows with: Ineffective Clearance Post-swallow residulas vallecular: Mild Post-Swallow residuals in pyriforms: Moderate - Fall Risk Assessment Medications/Conditions that increase fall risks include: Antidepressants, sedatives, anti-arrhythmic, diuretic, benzodiazipenes, neuroleptics. BP regulation problems, cardiac problems, balance or gait deficits, neurological problems. Is patient considered at risk for falls: yes, no Fall Risk Actions Taken: No action needed - Behavioral Observations During evaluation process patient: was cooperative - Treatment / Educational Needs: Treatment/Education Needs: Treatment consisted of patient education on the role of the Speech Pathologist. Patient's plan of care and golas were communicated as well as scheduling and attendance policies. Recommendations for initial home program were shared. Patient demonstrated understanding and verbalized agreement. - Impression/Summary Laryngeal Penetration: Yes - penetration of thin and nectar liquid seen on the swallow, as well as after the swallow with residuals. Minimal response (throat clear, etc.) Tracheal Aspiration: yes - aspiration of thin liquids after the swallow seen x2, no significant cough reaction seen. 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 Patient has significant pre-pooling of liquids and solids into valleculae and pyriform sinus prior to swallow initiation. When pharyngeal swallow does trigger, there is reduced laryngeal elevation and airway closure, which results in penetration of liquids, thin and nectar. Poor pharyngeal constriction also seen, which results in pyriform sinus residue with all textures, however, residue increases as texture increases (mild with thin liquid, moderate for thick liquid and puree, significant with solids). Patient also demonstrate piecemeal swallow pattern, with additional spillage from oral cavity after initial swallow trigger. Patient seen to aspirate after the swallow x2 with residuals from thin liquids, trace amounts. Cued patient to cough to clear. Patient also seen to have penetration of nectar thick liquid, which was not cleared with a throat clear/cough. Recommend continuing with thin liquids, as the patient will likely also have aspiration with thick liquids due to residue, and aspiration of thin liquids would be less likely to contribute to an aspiration pneumonia. - Recommendations Solid diet recommendations: Mechanical Soft, Ground Meat Liquid Diet Modification: Thin Dysphagia therapy with [employer] EXAMINER: f/u with current thera. - patient being seen by home health therapist Recommended techniques: Fully Upright During Meal, Small Bites and Sips, Alternate Bites/Sips Information, Precautions and Recommendations: Family Member (Written), Family Member (Verbal) Other recommendations: Education provided to and patient regarding nature of swallowing deficits, and that they will likely progress. Also discussed that there is risk of aspiration on any texture, and that current recommendations are considered the safest based on current swallow skills. Also discussed that patient's and family's preferences should also be considered when making decisions. Also discussed frequent oral care, including before meals, to decrease risk of aspiration developing into an aspiration pneumonia. - Time Total Time: 40 - Plan of Care Strategies to optimize patient understanding include:: ongoing assessment of educational needs, implementation of educational strategies, and re-education. - - -: Thank you for the opportunity to work with this patient and his/her family. Should you have any questions about this patient's plan or progress, I can be reached at [phone].
--- NOTE | 2019-11-06 13:09 | RADIOLOGY REPORT (SQ) ---
EXAM DESCRIPTION: COOKIE SWALLOW IMAGES COMPLETED DATE/TIME: 11/06/2019 9:46 am REASON FOR STUDY: R13.10 DYSPHAGIA, UNSPECIFIED R13.10 DYSPHAGIA, UNSPECIFIED K21.9 GASTRO-ESOPHAG EAL REFLUX DISEASE WITHOUT ESOPHAGITIS DEMENTIA COMPARISON: MODIFIED BARIUM SWALLOW 04/25/2018 TECHNIQUE: Videofluoroscopic swallowing examination was performed in conjunction with speech patholo gy. Videofluoroscopic imaging was obtained and reviewed and these are the findings: RADIATION DOSE: 4.2 minutes of fluoroscopy was used. 1 images saved to PACS. LIMITATIONS: None FINDINGS: The patient was brought into the fluoro room and placed upright on a modified barium swall ow chair. The patient was then given multiple consistencies mixed with barium to swallow under live fluoroscopic video guidance. According to the Speech Pathologist there was laryngeal penetration and aspiration of thin liquids. Moderate post swallow residual contrast within the Piriforms. There wa s penetration of this retained contrast. IMPRESSION: LARYNGEAL PENETRATION AND TRACE SILENT TRACHEAL ASPIRATION OF THIN LIQUIDS. PLEASE SEE S PEECH PATHOLOGIST REPORT FOR OTHER FINDINGS AND RECOMMENDATIONS. COMMENT: Quality ID 145: Final reports for procedures using fluoroscopy that document radiation exp osure indices, or exposure time and number of fluorographic images (if radiation exposure indices are not available) TECHNICAL DOCUMENTATION: JOB ID: [id number] 2010 [employer]- All Rights Reserved Reading location - IP/workstation name: [email or web address] [id number]
== END ==
LOC: RAD 08:04
PROVIDERS: ATTEND Otolaryngology
DX: K21.9 Gastro-esophageal reflux disease without esophagitis (principal); R13.10 Dysphagia, unspecified; F03.90 Unspecified dementia, unspecified severity, without behavioral disturbance, psychotic disturbance, mood disturbance, and anxiety
CPT/HCPCS: 74230